=== PATIENT | male | born 1960 | race Hispanic/Latino ===

== ENCOUNTER 2018-08-28 09:47 | Emergency (ER) | payer OTHER ==
--- NOTE | 2018-08-28 10:11 | Emergency Department Report ---
ED CPR HPI - General Chief Complaint: Cardiac Arrest/CPR Stated Complaint: CARDIAC ARREST Time Seen by Provider: 08/28/18 10:07 Source: EMS Mode of arrival: Stretcher Limitations: Other - History of Present Illness Initial Comments: 58-year-old man with history of lung cancer was found unresponsive by his family this morning. According to medics he was not DO NOT RESUSCITATE. They found the patient with CPR in progress by the family. There were no signs of life. He was in asystole and had no respirations. Medics tell me they attempted to insert a cane here in route to the hospital. They found that the jaw was rigid and this was impossible. The patient remained in asystole and was thought to be in rigor mortis and routes of the hospital. No further care was rendered by medics that I am aware of. Patient didn't did arrive with evidence of rigor mortis. His pupils were fixed and dilated. He was pronounced DOA. MD Complaint: found unresponsive -: unknown Place: home Bystander CPR Performed: Yes Initial Findings in the Field: unresponsive, systole ROSC in the Field: No Associated Injuries: No Treatments Prior to Arrival: chest compressions, other (attempted [employer]) ED Review of Systems ROS: Stated complaint: CARDIAC ARREST Other details as noted in HPI Comment: Unobtainable due to pts medical conditions ED Past Medical Hx - Past Medical History Additional medical history: Lung cancer ED Physical Exam - General Limitations: Other (extremely pale, no signs of life) General appearance: other (much older than listed age) - Eye Pupils: Present: other (fixed and dilated) - ENT ENT exam: Present: other (mandibular rigidity/limited jaw opening) - Respiratory Respiratory exam: Present: other (no respirations) - Cardiovascular Cardiovascular Exam: Present: other (asystole) - GI/Abdominal GI/Abdominal exam: Absent: distended - Extremities Exam Extremities exam: Present: normal inspection - Neurological Exam Neurological exam: Present: other (obviously brain-) - Skin Skin exam: Present: pallor ED Course - Reevaluation(s) Reevaluation #1: The patient was pronounced DOA. The family will be counseled. Obviously no fu rther resuscitative effort was indicated. 08/28/18 10:12 Critical care attestation.: If time is entered above; I have spent that time in minutes in the direct care of this critically ill patient, excluding procedure time. ED Disposition Clinical Impression: Cardiac arrest Disposition: DC-20 Is pt being admited?: No Does the pt Need Aspirin: No Condition: Stable Referrals: DEJON JACKSON MD [Primary Care Provider] - 3-5 Days Time of Disposition: 10:13
== END 2018-08-28 10:30 ==
LOC: ED 09:47
DX: I50.9 Heart failure, unspecified (principal)